=== PATIENT | male | born 1950 | race American Indian/Alaskan Native ===

== ENCOUNTER 2017-01-30 18:12 | Inpatient (IN) | payer SELFPAY ==
[2017-01-30 19:03] LABS: Basophils % (Auto) 0.6 % (0.0-1.8); Eosinophils % (Auto) 2.2 % (0.0-4.3); Hematocrit 39.4 % (35.5-45.6); Hemoglobin 12.7 gm/dl (11.8-15.2); Mean Corpuscular HGB Conc 32 % (32-34); Mean Corpuscular Hemoglobin 31 pg (28-32); Mean Corpuscular Volume 96 fl (84-94); Platelet Count 241 K/mm3 (140-440); Red Blood Count 4.12 M/mm3 (3.65-5.03); Red Cell Distribution Width 14.2 % (13.2-15.2)
[2017-01-30 19:04] LABS: INR 1.03 (0.87-1.13)
[2017-01-30 19:05] LABS: Partial Thromboplastin Time 42.8 Sec. (24.2-36.6)
[2017-01-30 19:14] LABS: Anion Gap 19 mmol/L; BUN/Creatinine Ratio 9.28; Blood Urea Nitrogen 26 mg/dL (9-20); Calcium 9.3 mg/dL (8.4-10.2); Carbon Dioxide 24 mmol/L (22-30); Chloride 104.7 mmol/L (98-107); Glucose 92 mg/dL (75-100); Potassium 4.2 mmol/L (3.6-5.0); Sodium 143 mmol/L (137-145)
--- NOTE | 2017-01-30 19:47 | Cat Scan Report ---
FINAL REPORT PROCEDURE: CT HEAD/BRAIN WO CON TECHNIQUE: Computerized tomography of the head was performed without contrast material. HISTORY: neuro deficits \T\lt; 6hrs or sx present upon awakening COMPARISON: No prior studies are available for comparison. FINDINGS: There is a 1 centimeter focus of right capsular ganglionic low-attenuation, compatible with ischemia which may be subacute to chronic. No CT evidence of intracranial mass, hemorrhage, or hydrocephalus. Calvarium is intact. Visualized paranasal sinuses and mastoids are aerated. IMPRESSION: 1 centimeter focus of ischemia in the right capsular ganglionic region, which may be subacute. Findings were discussed with KOLBY Poe by telephone at 6:41 p.m. central standard time on 01/30/2017.
[2017-01-30] MEDS ORDERED: NORMODYNE IV ONE ×2 (20:40→20:42)
--- NOTE | 2017-01-30 20:54 | Emergency Department Report ---
ED Neuro Deficit HPI - General Chief Complaint: Neuro Symptoms/Deficit Stated Complaint: SLURRED SPEACH Time Seen by Provider: 01/30/17 20:40 Source: patient Mode of arrival: Ambulatory Limitations: No Limitations - History of Present Illness Initial Comments: 66-year-old male presents to the emergency department for evaluation of possible stroke. Patient states for the last 1 day, he has been feeling "off". Family saw the patient this morning and noticed a right-sided facial droop with slurred speech. Patient denies weakness. At this time, he reports feeling better. Family at bedside states that his speech is much improved. There are no other complaints. -: Gradual, days(s) (1) Location: speech, right face Presenting Symptoms: Present: Facial Droop/Numbness, Unable to Speak Clearly History of same: No Place: home Severity: moderate Quality: improving Improves With: time Worsens With: none On Anticoagulants: No Context: gradual onset Associated Symptoms: denies other symptoms Treatments Prior to Arrival: none - Related Data Home Medications: Home Medications Medication Instructions Recorded Confirmed Last Taken No Known Home Medications [No 01/30/17 01/30/17 Unknown Reported Home Medications] Allergies/Adverse Reactions: Allergies Allergy/AdvReac Type Severity Reaction Status Date / Time No Known Allergies Allergy Unverified 01/30/17 18:24 ED Review of Systems ROS: Stated complaint: SLURRED SPEACH Other details as noted in HPI Comment: All other systems reviewed and negative Neurological: as per HPI, other (facial droop, slurred speech) ED Past Medical Hx - Past Medical History Previous Medical History?: No Hx Hypertension: No (patient denies) - Surgical History Past Surgical History?: No - Family History Family history: no significant - Social History Smoking Status: Current Every Day Smoker (1/2 PPD) Substance Use Type: Alcohol - Medications Home Medications: Home Medications Medication Instructions Recorded Confirmed Last Taken Type No Known Home Medications [No 01/30/17 01/30/17 Unknown History Reported Home Medications] ED Neuro Physical Exam - General Limitations: No Limitations General appearance: alert, in no apparent distress Suspected Stroke: Yes - Head Head exam: Present: atraumatic, normocephalic - Eye Eye exam: Present: normal appearance, PERRL, EOMI - ENT ENT exam: Present: normal exam, normal orophraynx, mucous membranes moist - Neck Neck exam: Present: normal inspection, full ROM. Absent: tenderness - Respiratory Respiratory exam: Present: normal lung sounds bilaterally. Absent: respiratory distress - Cardiovascular Cardiovascular Exam: Present: normal rhythm, tachycardia, normal heart sounds - GI/Abdominal GI/Abdominal exam: Present: soft, normal bowel sounds. Absent: distended, tenderness - Extremities Exam Extremities exam: Present: normal inspection, full ROM. Absent: tenderness - Back Exam Back exam: Present: normal inspection, full ROM. Absent: tenderness - Neurological Exam Neurological exam: Present: alert, oriented X3. Absent: motor sensory deficit - NIHSS Assessment Interval: Baseline 1a. Level of Consciousness: alert 1b. LOC Questions: answers correctly 1c. LOC Commands: performs tasks correctly 2. Best Gaze: normal 3. Visual: no visual loss 4. Facial Palsy: normal symmetrical movement 5b. Motor Arm Right: no drift 5a. Motor Arm Left: no drift 6a. Motor Leg Left: no drift 6b. Motor Leg Right: no drift 7. Limb Ataxia: absent 8. Sensory: normal 9. Best Language: no aphasia 10. Dysarthria: normal 11. Extinction/Inattention: no abnormality Total Score: 0 Stroke Severity: No Stroke Symptoms - Skin Skin exam: Present: warm, dry, intact ED Course Vital Signs 01/30/17 18:24 Temperature 98.3 F Pulse Rate 116 H Respiratory 20 Rate Blood Pressure 160/138 O2 Sat by Pulse 99 Oximetry - Lab Data Result diagrams: 01/30/17 18:47 01/30/17 18:47 Lab Results 01/30/17 01/30/17 01/30/17 Range/Units 18:47 18:47 18:47 WBC 6.0 (4.5-11.0) K/mm3 RBC 4.12 (3.65-5.03) M/mm3 Hgb 12.7 (11.8-15.2) gm/dl Hct 39.4 (35.5-45.6) % MCV 96 H (84-94) fl MCH 31 (28-32) pg MCHC 32 (32-34) % RDW 14.2 (13.2-15.2) % Plt Count 241 (140-440) K/mm3 Lymph % (Auto) 38.0 H (13.4-35.0) % [place] % (Auto) 10.2 H (0.0-7.3) % Eos % (Auto) 2.2 (0.0-4.3) % Baso % (Auto) 0.6 (0.0-1.8) % Lymph # 2.3 (1.2-5.4) K/mm3 [place] # 0.6 (0.0-0.8) K/mm3 Eos # 0.1 (0.0-0.4) K/mm3 Baso # 0.0 (0.0-0.1) K/mm3 Seg Neutrophils % 49.0 (40.0-70.0) % Seg Neutrophils # 2.9 (1.8-7.7) K/mm3 PT 13.4 (12.2-14.9) Sec. INR 1.03 (0.87-1.13) APTT 42.8 H (24.2-36.6) Sec. Thrombin Time (15.1-19.6) Sec. Sodium 143 (137-145) mmol/L Potassium 4.2 (3.6-5.0) mmol/L Chloride 104.7 (98-107) mmol/L Carbon Dioxide 24 (22-30) mmol/L Anion Gap 19 mmol/L BUN 26 H (9-20) mg/dL Creatinine 2.8 H (0.8-1.5) mg/dL Estimated GFR 28 ml/min BUN/Creatinine Ratio 9.28 % Glucose 92 (75-100) mg/dL Calcium 9.3 (8.4-10.2) mg/dL Troponin T < 0.010 (0.00-0.029) ng/mL 01/30/17 Range/Units 18:47 WBC (4.5-11.0) K/mm3 RBC (3.65-5.03) M/mm3 Hgb (11.8-15.2) gm/dl Hct (35.5-45.6) % MCV (84-94) fl MCH (28-32) pg MCHC (32-34) % RDW (13.2-15.2) % Plt Count (140-440) K/mm3 Lymph % (Auto) (13.4-35.0) % [place] % (Auto) (0.0-7.3) % Eos % (Auto) (0.0-4.3) % Baso % (Auto) (0.0-1.8) % Lymph # (1.2-5.4) K/mm3 [place] # (0.0-0.8) K/mm3 Eos # (0.0-0.4) K/mm3 Baso # (0.0-0.1) K/mm3 Seg Neutrophils % (40.0-70.0) % Seg Neutrophils # (1.8-7.7) K/mm3 PT (12.2-14.9) Sec. INR (0.87-1.13) APTT (24.2-36.6) Sec. Thrombin Time 17.1 (15.1-19.6) Sec. Sodium (137-145) mmol/L Potassium (3.6-5.0) mmol/L Chloride (98-107) mmol/L Carbon Dioxide (22-30) mmol/L Anion Gap mmol/L BUN (9-20) mg/dL Creatinine (0.8-1.5) mg/dL Estimated GFR ml/min BUN/Creatinine Ratio % Glucose (75-100) mg/dL Calcium (8.4-10.2) mg/dL Troponin T (0.00-0.029) ng/mL - EKG Data -: EKG Interpreted by Mi EKG shows normal: sinus rhythm, axis, intervals, ST-T waves Rate: normal When compared to previous EKG there are: previous EKG unavailable Interpretation: LVH - Radiology Data Radiology results: report reviewed, image reviewed CT of the head shows a 1 cm focus of ischemia in the right ganglionic region, which may be subacute. - Medical Decision Making Lab and imaging results reviewed and discussed with the patient. Giving IV labetalol for elevated blood pressure. Patient will be admitted by the hospitalist for further management. - Differential Diagnosis stroke, TIA, hypertensive urgency Critical care attestation.: If time is entered above; I have spent that time in minutes in the direct care of this critically ill patient, excluding procedure time. ED Disposition Clinical Impression: Uncontrolled hypertension Stroke Qualifiers: CVA mechanism: unspecified Qualified Code(s): I63.9 - Cerebral infarction, unspecified Acute renal failure Qualifiers: Acute renal failure type: unspecified Qualified Code(s): N17.9 - Acute kidney failure, unspecified Disposition: OP ADMIT IP TO THIS HOSP Is pt being admited?: Yes Condition: Stable Instructions: Hypertension (ED) Time of Disposition: 21:01
--- NOTE | 2017-01-30 22:15 | History and Physical Report ---
History of Present Illness Date of examination: 01/30/17 History of present illness: 66-year-old man with a history of hypertension for more than 10 years, noncompliant with his medication comes emergency room this morning because he felt dizzy and off-balance. Also state that his left side was weak, he had slurred speech, and his son noted that his face was twisted on the left. Patient denies chest pain, palpitation, shortness of breath, cough, abdominal pain, hematochezia, dysuria, frequency, focal weakness, fever chills, polydipsia polyuria, hot or cold intolerance, easy bruisability, or rash or bleeding from mucosal membrane, rhinorrhea, epistaxis, earache, tinnitus, blurry vision, eye discharge, anxiety, depression. Other review of systems negative PAST SURGICAL HISTORY: None SOCIAL HISTORY: Smoke half pack a day, drinks alcohol on weekends, no drugs FAMILY HISTORY: Hypertension Medications and Allergies Allergies Allergy/AdvReac Type Severity Reaction Status Date / Time No Known Allergies Allergy Unverified 01/30/17 18:24 Home Medications Medication Instructions Recorded Confirmed Last Taken Type No Known Home Medications [No 01/30/17 01/30/17 Unknown History Reported Home Medications] Exam - Physical Exam Narrative exam: Gen. appearance: Patient lying in bed, no apparent distress HEENT: Normocephalic, atraumatic, pupils equally round and reactive to light, extraocular movement intact, and no sclericterus,. No JVD or thyromegaly or nodule,neck supple, no carotid bruit ,mucous membranes moist, no exudate or erythema Heart: S1, S2, regular rate and rhythm Lungs: Clear to auscultation bilaterally, breathing comfortable Abdomen: Positive bowel sounds, nontender, nondistended, no organomegaly Extremity: No edema, cyanosis, clubbing Skin: No rash, nodules, warm, dry Neuro: Oriented 3, cranial nerves II-12 intact, speech is slurred, left-sided weakness4/5 and no sensory intact - Constitutional Vitals: Temp Pulse Resp BP Pulse Ox 98.3 F 73 21 237/116 98 01/30/17 18:24 01/30/17 21:20 01/30/17 21:20 01/30/17 21:20 01/30/17 21:20 Results - Labs CBC & Chem 7: 01/30/17 18:47 01/30/17 18:47 Labs: Abnormal lab results 01/30/17 01/30/17 01/30/17 Range/Units 18:47 18:47 18:47 MCV 96 H (84-94) fl Lymph % (Auto) 38.0 H (13.4-35.0) % [place] % (Auto) 10.2 H (0.0-7.3) % APTT 42.8 H (24.2-36.6) Sec. BUN 26 H (9-20) mg/dL Creatinine 2.8 H (0.8-1.5) mg/dL - Imaging and Cardiology EKG: image reviewed CT Scan - head: report reviewed Assessment and Plan Acute CVA Renal failure acute versus chronic hypertension malignant Noncompliance Admits medicine Start aspirin, statin Obtain MRI of the head, echo, carotid Doppler Do neurochecks, swallow screen Consult neurology, physical, occupational, speech therapy Start IV fluid, monitor kidney function, start DVT prophylaxis
[2017-01-30] MEDS: APRESOLINE IV PRN (22:34)
[2017-01-30] MEDS: NACL 0.45% 1000 ML 1,000 ML IV SCH (22:44)
[2017-01-30] MEDS ORDERED: DULCOLAX PR PRN (23:23)
[2017-01-30] MEDS ORDERED: TYLENOL PO PRN (23:23)
[2017-01-30] MEDS ORDERED: SODIUM CHLORIDE FLUSH SYRINGE 10 ML IV PRN (23:23)
[2017-01-30] MEDS ORDERED: MILK OF MAGNESIA PO PRN (23:23)
[2017-01-30] MEDS ORDERED: ZOFRAN IV PRN (23:23)
[2017-01-31] MEDS: APRESOLINE IV PRN ×3 (04:46→22:11)
--- NOTE | 2017-01-31 08:46 | Admit Criteria Form ---
Admission Criteria Documentation: STROKE: ISCHEMIC Clinical Indications for Admission to Inpatient Care (Place 'X' for any and all applicable criteria): Admission is indicated for ANY ONE of the following(1)(2)(3)(4): [ X]I. Acute stroke Extended stay beyond goal length of stay may be needed for(1)(2) [ ]a) Major deficit or clinical deterioration [ ]b) Hospital-acquired infection (eg, urinary tract infection, pneumonia) [ ]c) Embolic cause of stroke [ ]d) Venous thromboembolism(9) [ ]e) Seizures [ ]f) Bleeding (eg, cerebral) [ ]g) Increased intracranial pressure [ ]h) Comorbidities [ ]i) Surgical intervention The original [facility] content created by [employer] has been revised. The portions of the content which have been revised are identified through the use of italic text or in bold, and [facility] has neither reviewed nor approved the modified material. All other unmodified content is copyright [facility]. Please see references footnoted in the original [facility] edition 2016 Admission Criteria Met: Yes
[2017-01-31] MEDS: LOVENOX SUB-Q SCH (09:51)
[2017-01-31] MEDS: ASPIRIN PO SCH (09:51)
[2017-01-31] MEDS ORDERED: LOVENOX SUB-Q SCH (10:00)
--- NOTE | 2017-01-31 11:26 | Event Note ---
Date: 01/31/17 I attempted to see this patient between my scheduled coverage time of 8 AM-12 PM but they were not present in the floor room. I will return to staff in consultation 02/01.
--- NOTE | 2017-01-31 11:50 | Magnetic Resonance Report ---
MRI scan of brain: History: Stroke. Technique: Multiplanar, multisequence images were obtained without contrast injection. Findings: 2 cm area of restricted diffusion at the right basal ganglia without compression of adjacent ventricle. Ventricles are midline location. No extra-axial fluid collection. No hemorrhage. Normal brainstem and cerebellum. Normal sinuses and mastoid air cells. Impression: Acute/subacute ischemia right basal ganglia. No hemorrhage. No midline shift.
--- NOTE | 2017-01-31 13:21 | Progress Note ---
Assessment and Plan Assessment and plan: Acute CVA. Continue aspirin and statin. Neurology consultation pending. Follow-up MRI, echocardiogram and carotid Doppler reveals less than 50% stenosis. Continue neuro checks. PT/OT/ST. Accelerated hypertension. Patient reports hypertensive diagnosis for greater than 10 years but has been noncompliant. We will start Cardizem and hydralazine IV when necessary Renal insufficiency. Patient most likely has acute on CKD. 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 We do not have a baseline creatinine to compare. Continue to follow BMP. Medical noncompliance. Patient will be consulted. History Interval history: No new issues overnight. Hospitalist Physical - Constitutional Vitals: Temp Pulse Resp BP Pulse Ox 98.1 F 75 18 211/102 99 01/31/17 10:20 01/31/17 10:20 01/31/17 10:20 01/31/17 10:20 01/31/17 10:20 General appearance: Present: no acute distress, well-nourished - EENT Eyes: Present: PERRL, EOM intact ENT: hearing intact, clear oral mucosa, dentition normal - Neck Neck: Present: supple, normal ROM - Respiratory Respiratory effort: normal Respiratory: bilateral: CTA - Cardiovascular Rhythm: regular Heart Sounds: Present: S1 & S2. Absent: gallop, rub - Extremities Extremities: no ischemia, No edema, Full ROM - Abdominal General gastrointestinal: soft, non-tender, non-distended, normal bowel sounds - Integumentary Integumentary: Present: clear, warm, dry - Neurologic Neurologic: CNII-XII intact, moves all extremities Results - Labs CBC & Chem 7: 01/30/17 18:47 01/30/17 18:47 Labs: Laboratory Last Values WBC 6.0 K/mm3 (4.5-11.0) 01/30/17 18:47 RBC 4.12 M/mm3 (3.65-5.03) 01/30/17 18:47 Hgb 12.7 gm/dl (11.8-15.2) 01/30/17 18:47 Hct 39.4 % (35.5-45.6) 01/30/17 18:47 MCV 96 fl (84-94) H 01/30/17 18:47 MCH 31 pg (28-32) 01/30/17 18:47 MCHC 32 % (32-34) 01/30/17 18:47 RDW 14.2 % (13.2-15.2) 01/30/17 18:47 Plt Count 241 K/mm3 (140-440) 01/30/17 18:47 Lymph % (Auto) 38.0 % (13.4-35.0) H 01/30/17 18:47 [place] % (Auto) 10.2 % (0.0-7.3) H 01/30/17 18:47 Eos % (Auto) 2.2 % (0.0-4.3) 01/30/17 18:47 Baso % (Auto) 0.6 % (0.0-1.8) 01/30/17 18:47 Lymph # 2.3 K/mm3 (1.2-5.4) 01/30/17 18:47 [place] # 0.6 K/mm3 (0.0-0.8) 01/30/17 18:47 Eos # 0.1 K/mm3 (0.0-0.4) 01/30/17 18:47 Baso # 0.0 K/mm3 (0.0-0.1) 01/30/17 18:47 Seg Neutrophils % 49.0 % (40.0-70.0) 01/30/17 18:47 Seg Neutrophils # 2.9 K/mm3 (1.8-7.7) 01/30/17 18:47 PT 13.4 Sec. (12.2-14.9) 01/30/17 18:47 INR 1.03 (0.87-1.13) 01/30/17 18:47 APTT 42.8 Sec. (24.2-36.6) H 01/30/17 18:47 Thrombin Time 17.1 Sec. (15.1-19.6) 01/30/17 18:47 Sodium 143 mmol/L (137-145) 01/30/17 18:47 Potassium 4.2 mmol/L (3.6-5.0) 01/30/17 18:47 Chloride 104.7 mmol/L (98-107) 01/30/17 18:47 Carbon Dioxide 24 mmol/L (22-30) 01/30/17 18:47 Anion Gap 19 mmol/L 01/30/17 18:47 BUN 26 mg/dL (9-20) H 01/30/17 18:47 Creatinine 2.8 mg/dL (0.8-1.5) H 01/30/17 18:47 Estimated GFR 28 ml/min 01/30/17 18:47 BUN/Creatinine Ratio 9.28 % 01/30/17 18:47 Glucose 92 mg/dL (75-100) 01/30/17 18:47 Calcium 9.3 mg/dL (8.4-10.2) 01/30/17 18:47 Troponin T < 0.010 ng/mL (0.00-0.029) 01/30/17 18:47 Triglycerides 72 mg/dL (2-149) 01/31/17 05:34 Cholesterol 158 mg/dL (50-199) 01/31/17 05:34 LDL Cholesterol Direct 105 mg/dL (50-130) 01/31/17 05:34 HDL Cholesterol 39 mg/dL (40-59) L 01/31/17 05:34 Cholesterol/HDL Ratio 4.05 % 01/31/17 05:34
[2017-01-31] MEDS: CARDIZEM CD PO SCH (15:12)
[2017-01-31] MEDS: NORMODYNE PO SCH ×2 (15:13→22:10)
[2017-01-31] MEDS: NACL 0.45% 1000 ML 1,000 ML IV SCH (22:08)
[2017-01-31] MEDS: ZOCOR PO SCH (22:10)
[2017-02-01] MEDS: APRESOLINE IV PRN (04:24)
[2017-02-01] MEDS: ASPIRIN PO SCH (09:46)
[2017-02-01] MEDS: NORMODYNE PO SCH ×2 (09:46→21:17)
[2017-02-01] MEDS: CARDIZEM CD PO SCH (09:46)
[2017-02-01] MEDS: LOVENOX SUB-Q SCH (09:47)
--- NOTE | 2017-02-01 10:56 | Consultation ---
History of Present Illness Consult date: 02/01/17 Requesting physician: VIJAY JASON Reason for Consult: stroke Chief complaint: dizziness, slurred speech History of present illness: 66 YO M Hx HTN/Tob abuse not on AP therapy p/w acute onset dizziness and slurred speech on 01/30 AM unclear specific time.Sx are constant. There are no clear aggravating, relieving or temporal factors. Severity was enough to cause concern for stroke. Past History Past Medical History: hypertension Past Surgical History: No surgical history Social history: single, smoking Family history: hypertension Medications and Allergies Allergies Allergy/AdvReac Type Severity Reaction Status Date / Time No Known Allergies Allergy Unverified 01/30/17 18:24 Home Medications Medication Instructions Recorded Confirmed Last Taken Type No Known Home Medications [No 01/30/17 01/30/17 Unknown History Reported Home Medications] Active Meds: Active Medications Acetaminophen (Tylenol) 650 mg PO Q4H PRN PRN Reason: Pain, Mild (1-3) Aspirin (Aspirin) 325 mg PO QDAY COUNTS INCLUDE 234 BEDS AT THE [facility] Last Admin: 02/01/17 09:46 Dose: 325 mg Bisacodyl (Dulcolax) 10 mg MN QDAY PRN PRN Reason: Constipation Diltiazem HCl (Cardizem Cd) 120 mg PO QDAY COUNTS INCLUDE 234 BEDS AT THE [facility] Last Admin: 02/01/17 09:46 Dose: 120 mg Enoxaparin Sodium (Lovenox) 40 mg SUB-Q QDAY@1000 COUNTS INCLUDE 234 BEDS AT THE [facility] Last Admin: 02/01/17 09:47 Dose: 40 mg Hydralazine HCl (Apresoline) 5 mg IV Q6HR PRN PRN Reason: Hypertension Last Admin: 02/01/17 04:24 Dose: 5 mg Sodium Chloride (Nacl 0.45% 1000 Ml) 1,000 mls @ 75 mls/hr IV DIRECT COUNTS INCLUDE 234 BEDS AT THE [facility] Last Admin: 01/31/17 22:08 Dose: 75 mls/hr Labetalol HCl (Normodyne) 100 mg PO BID COUNTS INCLUDE 234 BEDS AT THE [facility] Last Admin: 02/01/17 09:46 Dose: 100 mg Magnesium Hydroxide (Milk Of Magnesia) 30 ml PO Q4H PRN PRN Reason: Constipation Ondansetron HCl (Zofran) 4 mg IV Q8H PRN PRN Reason: N/V unrelieved by Kuldeep Simvastatin (Zocor) 20 mg PO QHS COUNTS INCLUDE 234 BEDS AT THE [facility] Last Admin: 01/31/17 22:10 Dose: 20 mg Sodium Chloride (Sodium Chloride Flush Syringe 10 Ml) 10 ml IV PRN PRN PRN Reason: LINE FLUSH Review of Systems All systems: negative Neurological: change in speech, gait dysfunction, no weakness, no parathesias, no numbness, no tingling, no seizures, no lack of coordination, no headaches, no motor disturbance, no sensory deficit Physical Examination - Vital Signs Vital Signs: Vital Signs Temp Pulse Resp BP Pulse Ox 98.3 F 116 H 20 160/138 99 01/30/17 18:24 01/30/17 18:24 01/30/17 18:24 01/30/17 18:24 01/30/17 18:24 - Constitutional General appearance: comfortable - EENT EENT: Present: ATNC, PERRL, mucous membranes moist, hearing intact, vision intact - Respiratory Respiratory: Present: chest non-tender, normal breath sounds, no respiratory distress - Cardiovascular Cardiovascular: Present: regular rate Extremities: Present: no peripheral edema bilatateraly, no clubbing, cyanosis, no inflammation, no ischemia or petechiae - Gastrointestinal Gastrointestinal: Present: normoactive bowel sounds, soft, non-distended - Integumentary Integumentary: Present: normal - Neurologic Cranial nerve examination: PERRL, EOMI, V1/V2/V3 grossly intact, tongue midline , intact, intact shoulder shrug, Intact Vestibulo-ocular r, intact corneal reflex, facial droop (mild on L), normal palatal elevation Speech examination: other (mild slurred) Detailed motor examination: grossly full strength in Motor examination - right side: 5/5: biceps, triceps, wrist flexion, wrist extension, machine operator packaging, hip flexors, knee extensors, dorsiflexion, toe extension (EHL) , plantarflexion Motor examination - left side: 5/5: biceps, triceps, wrist flexion, wrist extension, machine operator packaging, hip flexors, knee extensors, dorsiflexion, toe extension (EHL) , plantarflexion Detailed sensory examination: intact, light touch, temperature Reflex and gait examination: intact Reflexes: 2+: ankle, bicep, knee, tricep Cerebellar examination: ataxia (mild on LUE) - Musculoskeletal Musculoskeletal: Present: no fluid collection, no pain, normal range of motion - Psychiatric Psychiatric: Present: mood/affect appropriate, cooperative Results - Laboratory Findings CBC and BMP: 01/30/17 18:47 01/30/17 18:47 Abnormal Lab Findings: Abnormal Labs 01/31/17 05:34 HDL Cholesterol 39 L Assessment and Plan 66 YO M Hx HTN/Tob abuse not on AP therapy p/w acute onset dizziness and slurred speech on 01/30 AM unclear specific time.CTH and MRI Brain confirm R basal ganglia acute lacunar type infarct. CDs neg. TTE neg. LDL 105. Plan and Recommendation: 1. No indication for pharmacologic thrombolysis with IV tPA or mechanical thrombectomy due to last known normal > 6 hrs from presentation. Current NIHSS 3. 2. Telemetry bed w/ Q4 hour neuro checks 3. Can lower MAPs by 10-15% daily to reach goal SBP 120-160 as completed permissive HTN period 4. Secondary stroke prevention: ASA 325mg Daily x 1 then 81mg QDay & upgrade to full dose statin therapy (Crestor 20mg or 40mg OR Lipitor 40mg or 80mg Daily OR Zocor 40mg QDay) for goal LDL < 70. 5. F/E/N: isotonic IVF prn, prn replete, bedside speech/swallow eval prior to PO intake. 6. DVT Prophylaxis 7. Stroke education, PT/OT/Speech Therapy consults, CM evaluation 8. For any changes in neurologic status, pls obtain STAT CTH w/o contrast and call neurology 9. If pt remains stable, no neurologic contraindication to discharge w/ outpt neuro follow up.
--- NOTE | 2017-02-01 12:16 | Progress Note ---
Assessment and Plan Assessment and plan: Acute CVA. Continue aspirin and statin. Neurology following. CTH and MRI Brain confirm R basal ganglia acute lacunar type infarct. Carotid Doppler and echocardiogram were negative. Continue neuro checks. PT/OT/ST. Continue aspirin and statin therapy. Physical therapy anticipate no needs for discharge. Accelerated hypertension. Patient reports hypertensive diagnosis for greater than 10 years but has been noncompliant. We will start Cardizem and hydralazine IV when necessary Renal insufficiency. Patient most likely has acute on CKD. 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 We do not have a baseline creatinine to compare. Continue to follow BMP. Medical noncompliance. History Interval history: No new issues overnight. Hospitalist Physical - Constitutional Vitals: Temp Pulse Resp BP Pulse Ox 98.4 F 72 16 189/90 99 02/01/17 08:51 02/01/17 10:00 02/01/17 10:00 02/01/17 08:51 02/01/17 10:00 General appearance: Present: no acute distress, well-nourished - EENT Eyes: Present: PERRL, EOM intact ENT: hearing intact, clear oral mucosa, dentition normal - Neck Neck: Present: supple, normal ROM - Respiratory Respiratory effort: normal Respiratory: bilateral: CTA - Cardiovascular Rhythm: regular Heart Sounds: Present: S1 & S2. Absent: gallop, rub - Extremities Extremities: no ischemia, No edema, Full ROM - Abdominal General gastrointestinal: soft, non-tender, non-distended, normal bowel sounds - Integumentary Integumentary: Present: clear, warm, dry - Neurologic Neurologic: CNII-XII intact, moves all extremities Results - Labs CBC & Chem 7: 01/30/17 18:47 01/30/17 18:47 Labs: Laboratory Last Values WBC 6.0 K/mm3 (4.5-11.0) 01/30/17 18:47 RBC 4.12 M/mm3 (3.65-5.03) 01/30/17 18:47 Hgb 12.7 gm/dl (11.8-15.2) 01/30/17 18:47 Hct 39.4 % (35.5-45.6) 01/30/17 18:47 MCV 96 fl (84-94) H 01/30/17 18:47 MCH 31 pg (28-32) 01/30/17 18:47 MCHC 32 % (32-34) 01/30/17 18:47 RDW 14.2 % (13.2-15.2) 01/30/17 18:47 Plt Count 241 K/mm3 (140-440) 01/30/17 18:47 Lymph % (Auto) 38.0 % (13.4-35.0) H 01/30/17 18:47 [place] % (Auto) 10.2 % (0.0-7.3) H 01/30/17 18:47 Eos % (Auto) 2.2 % (0.0-4.3) 01/30/17 18:47 Baso % (Auto) 0.6 % (0.0-1.8) 01/30/17 18:47 Lymph # 2.3 K/mm3 (1.2-5.4) 01/30/17 18:47 [place] # 0.6 K/mm3 (0.0-0.8) 01/30/17 18:47 Eos # 0.1 K/mm3 (0.0-0.4) 01/30/17 18:47 Baso # 0.0 K/mm3 (0.0-0.1) 01/30/17 18:47 Seg Neutrophils % 49.0 % (40.0-70.0) 01/30/17 18:47 Seg Neutrophils # 2.9 K/mm3 (1.8-7.7) 01/30/17 18:47 PT 13.4 Sec. (12.2-14.9) 01/30/17 18:47 INR 1.03 (0.87-1.13) 01/30/17 18:47 APTT 42.8 Sec. (24.2-36.6) H 01/30/17 18:47 Thrombin Time 17.1 Sec. (15.1-19.6) 01/30/17 18:47 Sodium 143 mmol/L (137-145) 01/30/17 18:47 Potassium 4.2 mmol/L (3.6-5.0) 01/30/17 18:47 Chloride 104.7 mmol/L (98-107) 01/30/17 18:47 Carbon Dioxide 24 mmol/L (22-30) 01/30/17 18:47 Anion Gap 19 mmol/L 01/30/17 18:47 BUN 26 mg/dL (9-20) H 01/30/17 18:47 Creatinine 2.8 mg/dL (0.8-1.5) H 01/30/17 18:47 Estimated GFR 28 ml/min 01/30/17 18:47 BUN/Creatinine Ratio 9.28 % 01/30/17 18:47 Glucose 92 mg/dL (75-100) 01/30/17 18:47 Calcium 9.3 mg/dL (8.4-10.2) 01/30/17 18:47 Troponin T < 0.010 ng/mL (0.00-0.029) 01/30/17 18:47 Triglycerides 72 mg/dL (2-149) 01/31/17 05:34 Cholesterol 158 mg/dL (50-199) 01/31/17 05:34 LDL Cholesterol Direct 105 mg/dL (50-130) 01/31/17 05:34 HDL Cholesterol 39 mg/dL (40-59) L 01/31/17 05:34 Cholesterol/HDL Ratio 4.05 % 01/31/17 05:34
[2017-02-01 16:47] LABS: BUN/Creatinine Ratio 9.61; Calcium 9.1 mg/dL (8.4-10.2); Potassium 4.3 mmol/L (3.6-5.0)
[2017-02-01] MEDS: ZOCOR PO SCH (21:18)
[2017-02-02 05:45] LABS: Basophils % (Auto) 0.4 % (0.0-1.8); Eosinophils % (Auto) 2.5 % (0.0-4.3); Hematocrit 35.9 % (35.5-45.6); Hemoglobin 11.9 gm/dl (11.8-15.2); Mean Corpuscular HGB Conc 33 % (32-34); Mean Corpuscular Hemoglobin 31 pg (28-32); Platelet Count 228 K/mm3 (140-440); Red Blood Count 3.86 M/mm3 (3.65-5.03); White Blood Count 5.7 K/mm3 (4.5-11.0)
[2017-02-02 05:53] LABS: Mean Corpuscular Volume 94 fl (84-94)
[2017-02-02 06:10] LABS: BUN/Creatinine Ratio 9.61; Calcium 8.9 mg/dL (8.4-10.2); Chloride 107.3 mmol/L (98-107); Potassium 4.2 mmol/L (3.6-5.0)
[2017-02-02] MEDS: APRESOLINE IV PRN ×2 (06:23→12:25)
--- NOTE | 2017-02-02 10:15 | Discharge Summary ---
Providers - Providers Date of Admission: 01/30/17 22:13 Date of discharge: 02/02/17 Attending physician: VIJAY JASON 01/30/17 Consult to Physician [CONS] Routine Consulting Provider: MILEY MANE Reason For Exam: cva Place consult to:: neuro Notified:: saumya Phone number called:: [phone] Was contact made?: No Time called:: 09:00 Comment:: message on machine 01/30/17 23:23 Occupational Therapy Evaluate and Treat [CONS] Routine Comment: Reason For Exam: Neuro deficits Physical Therapy Evaluation and Treat [CONS] Routine Comment: Reason For Exam: Neuro deficits Primary care physician: TESTING CONSULTANT Hospitalization Reason for admission: cva Condition: Stable Hospital course: This is a 66-year-old male with significant past medical history of hypertension and tobacco abuse who presented to the emergency department with acute onset dizziness and slurred speech on 01/30/17 unclear of the specific time. There was no indication of pharmacologic thrombolyzes with IV TPA or mechanical thrombectomy due to time window where the last known normal time was [address] scan of the head and MRI of the brain which revealed acute basal ganglia lacunar type infarct. Carotid Dopplers were negative. Echocardiogram negative. Patient's LDL was noted be 105. Neurology was consulted. Patient had blood pressures lower 10-15% daily MAPs of the presenting blood pressure to the emergency department. Permissive hypertension was maintained. Patient stabilized. Patient underwent PT/OT/ST. Evaluation. Recommendations were for no needs. Patient's symptoms essentially returned back to baseline. Patient was treated for secondary stroke prevention with aspirin and Zocor which will be the discharge medications. Patient is to follow -up with neuro as an outpatient. Dedicated discharge time 35 minutes. Disposition: DC-01 TO HOME OR SELFCARE Time spent for discharge: 35 Core Measure Documentation - Palliative Care Palliative Care/ Comfort Measures: Not Applicable - Core Measures Any of the following diagnoses?: stroke - Stroke Discharge Requirements Statin for LDL = or >70 mg/dl on DC: Yes Anticoag for atrial fib/atrial flutter: Not Applicable Antithrombotic for ischemic stroke: Yes Exam - Constitutional Vitals: Temp Pulse Resp BP Pulse Ox 98.6 F 60 18 198/93 97 02/02/17 08:27 02/02/17 08:38 02/02/17 08:27 02/02/17 08:27 02/02/17 08:27 General appearance: Present: no acute distress, well-nourished - EENT Eyes: Present: PERRL ENT: hearing intact, clear oral mucosa - Neck Neck: Present: supple, normal ROM - Respiratory Respiratory effort: normal Respiratory: bilateral: CTA - Cardiovascular Heart Sounds: Present: S1 & S2. Absent: rub, click - Extremities Extremities: pulses symmetrical, No edema Peripheral Pulses: within normal limits - Abdominal General gastrointestinal: Present: soft, non-tender, non-distended, normal bowel sounds Male genitourinary: Present: normal - Integumentary Integumentary: Present: clear, warm, dry - Musculoskeletal Musculoskeletal: gait normal, strength equal bilaterally - Psychiatric Psychiatric: appropriate mood/affect, intact judgment & insight - Neurologic Neurologic: CNII-XII intact, moves all extremities Plan Activity: no restrictions Weight Bearing Status: Full Weight Bearing Diet: low fat, low cholesterol, low salt Special Instructions: home health RN Follow up with: PRIMARY CARE, [Primary Care Provider] - 7 Days MILEY MANE MD [Staff Physician] - 7 Days Prescriptions: Diltiazem Cd [Cardizem CD] 240 mg PO QDAY #30 capsule Labetalol [Normodyne TAB] 400 mg PO BID #60 tablet Simvastatin [Zocor TAB] 40 mg PO QHS #30 tablet
[2017-02-02] MEDS ORDERED: NORMODYNE PO SCH (10:17)
[2017-02-02] MEDS: CARDIZEM CD PO SCH ×2 (11:42→13:04)
[2017-02-02] MEDS: ASPIRIN PO SCH (11:42)
[2017-02-02] MEDS: LOVENOX SUB-Q SCH (11:42)
[2017-02-02] MEDS: NORMODYNE PO SCH ×3 (13:05→21:42)
--- NOTE | 2017-02-02 14:23 | Progress Note ---
Assessment and Plan Assessment and plan: Acute CVA. Continue aspirin and statin. Neurology following. CTH and MRI Brain confirm R basal ganglia acute lacunar type infarct. Carotid Doppler and echocardiogram were negative. Continue neuro checks. PT/OT/ST. Continue aspirin and statin therapy. Physical therapy anticipate no needs for discharge. Accelerated hypertension. Patient reports hypertensive diagnosis for greater than 10 years but has been noncompliant. We will start Cardizem and hydralazine IV when necessary Renal insufficiency. Patient most likely has acute on CKD. 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 We do not have a baseline creatinine to compare. Continue to follow BMP. Consider nephrology consultation.. Check renal ultrasound. Medical noncompliance. History Interval history: No new issues overnight. Patient still with elevated blood pressures. Patient denies any headache or chest pain. Hospitalist Physical - Constitutional Vitals: Temp Pulse Resp BP Pulse Ox 98.2 F 66 18 190/110 95 02/02/17 13:04 02/02/17 13:04 02/02/17 13:04 02/02/17 13:04 02/02/17 13:04 General appearance: Present: no acute distress, well-nourished - EENT Eyes: Present: PERRL, EOM intact ENT: hearing intact, clear oral mucosa, dentition normal - Neck Neck: Present: supple, normal ROM - Respiratory Respiratory effort: normal Respiratory: bilateral: CTA - Cardiovascular Rhythm: regular Heart Sounds: Present: S1 & S2. Absent: gallop, rub - Extremities Extremities: no ischemia, No edema, Full ROM - Abdominal General gastrointestinal: soft, non-tender, non-distended, normal bowel sounds - Integumentary Integumentary: Present: clear, warm, dry - Neurologic Neurologic: CNII-XII intact, moves all extremities Results - Labs CBC & Chem 7: 02/02/17 04:48 02/02/17 04:48 Labs: Laboratory Last Values WBC 5.7 K/mm3 (4.5-11.0) 02/02/17 04:48 RBC 3.86 M/mm3 (3.65-5.03) 02/02/17 04:48 Hgb 11.9 gm/dl (11.8-15.2) 02/02/17 04:48 Hct 35.9 % (35.5-45.6) 02/02/17 04:48 MCV 94 fl (84-94) 02/02/17 04:48 MCH 31 pg (28-32) 02/02/17 04:48 MCHC 33 % (32-34) 02/02/17 04:48 RDW 14.0 % (13.2-15.2) 02/02/17 04:48 Plt Count 228 K/mm3 (140-440) 02/02/17 04:48 Lymph % (Auto) 31.7 % (13.4-35.0) 02/02/17 04:48 [place] % (Auto) 10.3 % (0.0-7.3) H 02/02/17 04:48 Eos % (Auto) 2.5 % (0.0-4.3) 02/02/17 04:48 Baso % (Auto) 0.4 % (0.0-1.8) 02/02/17 04:48 Lymph # 1.8 K/mm3 (1.2-5.4) 02/02/17 04:48 [place] # 0.6 K/mm3 (0.0-0.8) 02/02/17 04:48 Eos # 0.1 K/mm3 (0.0-0.4) 02/02/17 04:48 Baso # 0.0 K/mm3 (0.0-0.1) 02/02/17 04:48 Seg Neutrophils % 55.1 % (40.0-70.0) 02/02/17 04:48 Seg Neutrophils # 3.1 K/mm3 (1.8-7.7) 02/02/17 04:48 PT 13.4 Sec. (12.2-14.9) 01/30/17 18:47 INR 1.03 (0.87-1.13) 01/30/17 18:47 APTT 42.8 Sec. (24.2-36.6) H 01/30/17 18:47 Thrombin Time 17.1 Sec. (15.1-19.6) 01/30/17 18:47 Sodium 142 mmol/L (137-145) 02/02/17 04:48 Potassium 4.2 mmol/L (3.6-5.0) 02/02/17 04:48 Chloride 107.3 mmol/L (98-107) H 02/02/17 04:48 Carbon Dioxide 21 mmol/L (22-30) L 02/02/17 04:48 Anion Gap 18 mmol/L 02/02/17 04:48 BUN 25 mg/dL (9-20) H 02/02/17 04:48 Creatinine 2.6 mg/dL (0.8-1.5) H 02/02/17 04:48 Estimated GFR 30 ml/min 02/02/17 04:48 BUN/Creatinine Ratio 9.61 % 02/02/17 04:48 Glucose 91 mg/dL (75-100) 02/02/17 04:48 Calcium 8.9 mg/dL (8.4-10.2) 02/02/17 04:48 Troponin T < 0.010 ng/mL (0.00-0.029) 01/30/17 18:47 Triglycerides 72 mg/dL (2-149) 01/31/17 05:34 Cholesterol 158 mg/dL (50-199) 01/31/17 05:34 LDL Cholesterol Direct 105 mg/dL (50-130) 01/31/17 05:34 HDL Cholesterol 39 mg/dL (40-59) L 01/31/17 05:34 Cholesterol/HDL Ratio 4.05 % 01/31/17 05:34
[2017-02-02] MEDS: APRESOLINE PO SCH ×2 (15:26→21:41)
[2017-02-02] MEDS: CATAPRES PO SCH (21:43)
[2017-02-02] MEDS: ZOCOR PO SCH (21:44)
[2017-02-03 05:46] LABS: Basophils % (Auto) 0.4 % (0.0-1.8); Eosinophils % (Auto) 2.5 % (0.0-4.3); Hematocrit 37.4 % (35.5-45.6); Hemoglobin 12.2 gm/dl (11.8-15.2); Mean Corpuscular HGB Conc 33 % (32-34); Mean Corpuscular Hemoglobin 31 pg (28-32); Mean Corpuscular Volume 95 fl (84-94); Platelet Count 243 K/mm3 (140-440); Red Blood Count 3.94 M/mm3 (3.65-5.03); White Blood Count 5.2 K/mm3 (4.5-11.0)
[2017-02-03] MEDS: NORMODYNE PO SCH (05:53)
[2017-02-03] MEDS: APRESOLINE PO SCH (05:53)
[2017-02-03 06:09] LABS: BUN/Creatinine Ratio 9.35; Calcium 9.1 mg/dL (8.4-10.2); Chloride 105.1 mmol/L (98-107); Potassium 4.4 mmol/L (3.6-5.0)
[2017-02-03] MEDS: CATAPRES PO SCH (10:25)
[2017-02-03] MEDS: CARDIZEM CD PO SCH (10:25)
[2017-02-03] MEDS: ASPIRIN PO SCH (10:25)
[2017-02-03 10:26] VITALS: BP 134/78
[2017-02-03] MEDS ORDERED: LOVENOX SUB-Q SCH (10:30)
--- NOTE | 2017-02-03 10:30 | Ultrasound Report ---
ULTRASOUND RENAL BILATERAL HISTORY: Renal failure. TECHNIQUE: transabdominal ultrasound with color Doppler interrogation. FINDINGS: The right kidney measures 10.5 x 4.8 x 4.6cm. Right renal cortex: 1.7cm. The left kidney measures 9.8 x 4.8 x 4.3cm. Left renal cortex: 1.4cm. Both kidneys are normal size and position. There is increased renal parenchymal echotexture bilaterally consistent with renal parenchymal disease or acute renal failure. Mild right hydronephrosis is identified. No evidence for cystic disease, mass or shadowing calculus. The bladder is empty. IMPRESSION: Echogenic kidneys consistent with medical renal disease or acute renal failure. Mild right hydronephrosis.
--- NOTE | 2017-02-04 07:44 | Vascular Lab Report ---
CAROTID DUPLEX STUDY: RIGHT PSVEDV CCA PROX: 7720 CCA DIST: 7924 ICA PROX: 47 11 ICA MID: 4317 ICA DIST: 8318 ECA: 136 VERT: 93 16 LEFT PSVEDV CCA PROX: 8923 CCA DIST: 7523 ICA PROX: 5417 ICA MID: 5419 ICA DIST: 4817 ECA: 91 VERT: 54 22 REASON FOR EXAM: Stroke. COMMENTS ON THE RIGHT: Doppler frequency analysis is consistent with 16 to 49 percent diameter reduction of the internal carotid artery. Minimal amount of plaque is seen. The common carotid artery is patent. The external carotid artery is patent. The vertebral artery has antegrade flow. COMMENTS ON THE LEFT: Doppler frequency analysis is consistent with 16 to 49 percent diameter reduction of the internal carotid artery. Minimal amount of plaque is seen. The common carotid artery is patent. The external carotid artery is patent. The vertebral artery has antegrade flow. IMPRESSION: Less than 50% diameter reduction in the internal carotid arteries bilaterally. Consider repeat carotid artery duplex in 12 months.
== END 2017-02-03 12:15 | disposition home or self-care (01) | DRG 65 ==
LOC: ED 18:12 → 4A 22:13
PROVIDERS: ADMIT Internal Medicine; ATTEND Hospitalist
DX: I63.9 Cerebral infarction, unspecified (principal); N17.9 Acute kidney failure, unspecified; I10 Essential (primary) hypertension; F17.210 Nicotine dependence, cigarettes, uncomplicated; Z91.14 Patient's other noncompliance with medication regimen; Z72.89 Other problems related to lifestyle; Z82.49 Family history of ischemic heart disease and other diseases of the circulatory system
CPT/HCPCS: 36415; 70450; 70551; 76770; 80048; 80061; 84484; 85025; 85610; 85670; 85730; 93005; 93010; 93306; 93880; 96374; 96375; 99406; J0360; J1650

== ENCOUNTER 2017-02-22 11:55 | Emergency (ER) | payer SELFPAY ==
[2017-02-22 13:20] LABS: Basophils % (Auto) 0.7 % (0.0-1.8); Hematocrit 36.6 % (35.5-45.6); Hemoglobin 11.7 gm/dl (11.8-15.2); Mean Corpuscular HGB Conc 32 % (32-34); Mean Corpuscular Hemoglobin 30 pg (28-32); Mean Corpuscular Volume 94 fl (84-94); Platelet Count 249 K/mm3 (140-440); Red Blood Count 3.89 M/mm3 (3.65-5.03); White Blood Count 5.4 K/mm3 (4.5-11.0)
[2017-02-22 13:43] LABS: Albumin 3.9 g/dL (3.9-5); Albumin/Globulin Ratio 1.1 %; BUN/Creatinine Ratio 11.03; Bilirubin,Total 0.3 mg/dL (0.1-1.2); Calcium 9.3 mg/dL (8.4-10.2); Chloride 103.1 mmol/L (98-107); Potassium 4.9 mmol/L (3.6-5.0); Total Protein 7.6 g/dL (6.3-8.2)
--- NOTE | 2017-02-22 14:57 | Emergency Department Report ---
ED General Adult HPI - General Chief complaint: High BP Stated complaint: ELEVATED B/P Time Seen by Provider: 02/22/17 14:40 Source: patient Mode of arrival: Ambulatory Limitations: No Limitations - History of Present Illness Initial comments: Patient 66-year-old male with a history of hypertension sent from PCP office for elevated blood pressure. He did not take his medications this morning because he was going for a checkup. When he got to their office they noted his pressure to be elevated and sent him immediately to the emergency department after giving him 2 mg of clonidine. Here in the ER he is completely asymptomatic no headache, occasional blurred vision but not currently, no chest pain, no shortness of breath. He otherwise has no complaints. -: Gradual Location: head Radiation: non-radiation Quality: other (elevated blood pressure) Improves with: medication Worsens with: none Associated Symptoms: denies: confusion, chest pain, loss of appetite, malaise, nausea/vomiting, shortness of breath, syncope, weakness - Related Data Previous Rx's Medication Instructions Recorded Last Taken Type Aspirin 81 mg PO DAILY #30 tab.chew 02/02/17 Unknown Rx Labetalol [Normodyne TAB] 400 mg PO BID #60 tablet 02/02/17 Unknown Rx Simvastatin [Zocor TAB] 40 mg PO QHS #30 tablet 02/02/17 Unknown Rx Clonidine HCl [Kapvay] 0.1 mg PO BID #60 tab.er.12h 02/22/17 Unknown Rx Diltiazem Cd [Cardizem CD] 240 mg PO QDAY #30 capsule 02/22/17 Unknown Rx hydrALAZINE [Apresoline TAB] 50 mg PO TID #90 tab 02/22/17 Unknown Rx Allergies Allergy/AdvReac Type Severity Reaction Status Date / Time No Known Allergies Allergy Unverified 01/30/17 18:24 ED Review of Systems ROS: Stated complaint: ELEVATED B/P Other details as noted in HPI Comment: All other systems reviewed and negative Constitutional: denies: chills, fever Eyes: denies: eye pain, eye discharge, vision change ENT: denies: ear pain, throat pain Respiratory: denies: cough, shortness of breath, wheezing Cardiovascular: denies: chest pain, palpitations Endocrine: no symptoms reported Gastrointestinal: denies: abdominal pain, nausea, diarrhea Genitourinary: denies: urgency, dysuria Musculoskeletal: denies: back pain, joint swelling, arthralgia Skin: denies: rash, lesions Neurological: denies: headache, weakness, paresthesias Psychiatric: denies: anxiety, depression Hematological/Lymphatic: denies: easy bleeding, easy bruising ED Past Medical Hx - Past Medical History Hx Hypertension: Yes Hx Congestive Heart Failure: No Hx Diabetes: No Hx Asthma: No Hx COPD: No - Surgical History Past Surgical History?: No - Family History Family history: hypertension - Social History Smoking Status: Current Every Day Smoker - Medications Home Medications: Home Medications Medication Instructions Recorded Confirmed Last Taken Type Aspirin 81 mg PO DAILY #30 tab.chew 02/02/17 Unknown Rx Labetalol [Normodyne TAB] 400 mg PO BID #60 tablet 02/02/17 Unknown Rx Simvastatin [Zocor TAB] 40 mg PO QHS #30 tablet 02/02/17 Unknown Rx Clonidine HCl [Kapvay] 0.1 mg PO BID #60 tab.er.12h 02/22/17 Unknown Rx Diltiazem Cd [Cardizem CD] 240 mg PO QDAY #30 capsule 02/22/17 Unknown Rx hydrALAZINE [Apresoline TAB] 50 mg PO TID #90 tab 02/22/17 Unknown Rx ED Physical Exam - General Limitations: No Limitations General appearance: alert, in no apparent distress - Head Head exam: Present: atraumatic, normocephalic - Eye Eye exam: Present: normal appearance - ENT ENT exam: Present: mucous membranes moist - Neck Neck exam: Present: normal inspection - Respiratory Respiratory exam: Present: normal lung sounds bilaterally. Absent: respiratory distress - Cardiovascular Cardiovascular Exam: Present: regular rate, normal rhythm. Absent: systolic murmur, diastolic murmur, rubs, gallop - GI/Abdominal GI/Abdominal exam: Present: soft, normal bowel sounds - Rectal Rectal exam: Present: deferred - Extremities Exam Extremities exam: Present: normal inspection - Back Exam Back exam: Present: normal inspection - Neurological Exam Neurological exam: Present: alert, oriented X3 - Psychiatric Psychiatric exam: Present: normal affect, normal mood - Skin Skin exam: Present: warm, dry, intact, normal color. Absent: rash ED Course Vital Signs 02/22/17 02/22/17 12:54 14:50 Temperature 98.5 F Pulse Rate 73 66 Respiratory 16 18 Rate Blood Pressure 215/124 Blood Pressure 222/93 [Left] O2 Sat by Pulse 100 Oximetry ED Medical Decision Making - Lab Data Result diagrams: 02/22/17 13:10 02/22/17 13:10 Laboratory Results - last 24 hr 02/22/17 02/22/17 13:10 13:10 WBC 5.4 RBC 3.89 Hgb 11.7 L Hct 36.6 MCV 94 MCH 30 MCHC 32 RDW 14.0 Plt Count 249 Lymph % (Auto) 29.4 [place] % (Auto) 11.0 H Eos % (Auto) 2.0 Baso % (Auto) 0.7 Lymph # 1.6 [place] # 0.6 Eos # 0.1 Baso # 0.0 Seg Neutrophils % 56.9 Seg Neutrophils # 3.1 Sodium 139 Potassium 4.9 Chloride 103.1 Carbon Dioxide 23 Anion Gap 18 BUN 32 H Creatinine 2.9 H Estimated GFR 27 BUN/Creatinine Ratio 11.03 Glucose 86 Calcium 9.3 Total Bilirubin 0.30 AST 19 ALT 22 Alkaline Phosphatase 74 Total Protein 7.6 Albumin 3.9 Albumin/Globulin Ratio 1.1 - Medical Decision Making Patient with asymptomatic hypertension. He appears well he has normal labs. He did not take his medications this morning. I plan to treat him with his normal medications and we'll discharge him home. Portions of this chart were dictated with dictation software. There may be dictation errors contained within this note. Critical care attestation.: If time is entered above; I have spent that time in minutes in the direct care of this critically ill patient, excluding procedure time. ED Disposition Clinical Impression: Hypertension Disposition: DC-01 TO HOME OR SELFCARE Is pt being admited?: No Condition: Stable Instructions: Hypertension (ED) Prescriptions: Clonidine HCl [Kapvay] 0.1 mg PO BID #60 tab.er.12h Diltiazem Cd [Cardizem CD] 240 mg PO QDAY #30 capsule hydrALAZINE [Apresoline TAB] 50 mg PO TID #90 tab
[2017-02-22 15:30] VITALS: BP 199/95
== END 2017-02-22 15:27 | disposition home or self-care (01) ==
LOC: ED 11:55
DX: I10 Essential (primary) hypertension (principal); F17.200 Nicotine dependence, unspecified, uncomplicated; Z79.82 Long term (current) use of aspirin
CPT/HCPCS: 36415; 80053; 85025; 99283

== ENCOUNTER 2018-12-18 13:19 | Outpatient (CLI) | payer MEDICARE ==
[2018-12-18 13:42] LABS: Basophils % (Auto) 0.7 % (0.0-1.8); Eosinophils % (Auto) 1.1 % (0.0-4.3); Hemoglobin 13.5 gm/dl (11.8-15.2); Lymphocytes # (Auto) 1.2 K/mm3 (1.2-5.4); Lymphocytes % (Auto) 33.7 % (13.4-35.0); Mean Corpuscular HGB Conc 33 % (32-34); Mean Corpuscular Volume 99 fl (84-94); Monocytes # (Auto) 0.4 K/mm3 (0.0-0.8); Monocytes % (Auto) 12.1 % (0.0-7.3); Platelet Count 208 K/mm3 (140-440); Red Blood Count 4.16 M/mm3 (3.65-5.03); Red Cell Distribution Width 15.3 % (13.2-15.2)
[2018-12-18 14:06] LABS: Calcium 9.3 mg/dL (8.4-10.2)
[2018-12-18 14:07] LABS: Creatinine,Urine 370.7 mg/dL (0.1-20.0); Protein/Creatinine Ratio,Urine 0.22
[2018-12-18 14:10] LABS: Bilirubin,Urine NEG (Negative); Blood,Urine NEG (Negative); Color,Urine Yellow (Yellow)
== END 2018-12-18 13:20 | disposition home or self-care (01) ==
LOC: LAB 13:19
PROVIDERS: ATTEND Internal Medicine Nephrology
DX: I12.9 Hypertensive chronic kidney disease with stage 1 through stage 4 chronic kidney disease, or unspecified chronic kidney disease (principal); N18.3 Chronic kidney disease, stage 3 (moderate); N40.0 Benign prostatic hyperplasia without lower urinary tract symptoms; N25.81 Secondary hyperparathyroidism of renal origin; D63.1 Anemia in chronic kidney disease; N28.1 Cyst of kidney, acquired
CPT/HCPCS: 36415; 80048; 81001; 82570; 84100; 84156; 85025

== ENCOUNTER 2019-01-20 09:26 | Outpatient (CLI) | payer MEDICARE ==
[2019-01-20 10:23] LABS: Hematocrit 43.2 % (35.5-45.6); Hemoglobin 14.4 gm/dl (11.8-15.2); Mean Corpuscular HGB Conc 33 % (32-34); Mean Corpuscular Volume 99 fl (84-94); Platelet Count 264 K/mm3 (140-440); Red Blood Count 4.39 M/mm3 (3.65-5.03); Red Cell Distribution Width 14.4 % (13.2-15.2)
[2019-01-20 10:25] LABS: Calcium 9.2 mg/dL (8.4-10.2)
[2019-01-20 10:36] LABS: Creatinine,Urine 383.4 mg/dL (0.1-20.0); Protein/Creatinine Ratio,Urine 0.12
[2019-01-20 10:55] LABS: Bilirubin,Urine NEG (Negative); Blood,Urine NEG (Negative); Color,Urine Yellow (Yellow); Mucus,Urine FEW /HPF; Protein,Urine <15 mg/dL mg/dL (Negative); Urobilinogen,Urine < 2.0 mg/dL (<2.0)
[2019-01-20 10:58] LABS: RBC,Urine < 1.0 /HPF (0.0-6.0)
[2019-01-26 20:52] LABS: Vitamin D, 25-OH, D2 <4 ng/mL
== END 2019-01-20 09:27 | disposition home or self-care (01) ==
LOC: LAB 09:26
PROVIDERS: ATTEND Internal Medicine Nephrology
DX: N25.81 Secondary hyperparathyroidism of renal origin (principal); I10 Essential (primary) hypertension
CPT/HCPCS: 36415; 80048; 81001; 82306; 82570; 83970; 84100; 84156; 85027

== ENCOUNTER 2019-04-28 13:51 | Outpatient (CLI) | payer MEDICARE ==
[2019-04-28 14:22] LABS: Hemoglobin 12.5 gm/dl (11.8-15.2); Mean Corpuscular HGB Conc 34 % (32-34); Mean Corpuscular Volume 97 fl (84-94); Platelet Count 243 K/mm3 (140-440); Red Blood Count 3.81 M/mm3 (3.65-5.03); Red Cell Distribution Width 14.2 % (13.2-15.2)
[2019-04-28 14:43] LABS: Creatinine,Urine 266.5 mg/dL (0.1-20.0); Protein/Creatinine Ratio,Urine 0.11
[2019-04-28 14:44] LABS: Calcium 9.2 mg/dL (8.4-10.2)
[2019-04-28 14:49] LABS: Bilirubin,Urine NEG (Negative); Blood,Urine NEG (Negative); Color,Urine Yellow (Yellow); Protein,Urine <15 mg/dL mg/dL (Negative); Urobilinogen,Urine < 2.0 mg/dL (<2.0)
== END 2019-04-28 13:52 | disposition home or self-care (01) ==
LOC: LAB 13:51
PROVIDERS: ATTEND Internal Medicine Nephrology
DX: I12.9 Hypertensive chronic kidney disease with stage 1 through stage 4 chronic kidney disease, or unspecified chronic kidney disease (principal); N25.81 Secondary hyperparathyroidism of renal origin; N18.9 Chronic kidney disease, unspecified
CPT/HCPCS: 36415; 80048; 81001; 82570; 84156; 85027